=== PATIENT | male | born 1975 | race Caucasian/White ===

== ENCOUNTER 2016-11-16 19:39 | Emergency (ER) | payer SELFPAY ==
--- NOTE | ~2016-11-16 | ER ---
PATIENT'S NAME: BRANDYN MITCHELL [facility] AGE: 41 Y [address] ROOM: [place] [address] LOCATION: [facility] ADMIT DATE: 11/16/2016 ER/Outpatient Report DISCHARGE DATE: 11/16/2016 FAMILY PHYSICIAN: PHYSICIAN, NO ATTENDING PHYSICIAN: Gerson Sena Time of Arrival: 1940 hours. Time of Exam: 1955 hours. CHIEF COMPLAINT: Abdominal pain. HISTORY OF PRESENT ILLNESS: The patient states since 10 o'clock this morning, he has had nausea, vomiting, and generalized abdominal pain. States the pain is all over. States the vomitus has been bile colored. He reports he had a normal bowel movement this morning. Denies having fever or chills. Denies any change in his urination. States however he has not urinated since this morning, also because every time he tries to drink any fluids, he vomits them back up. He reports he has had this pain before. He has a history of abdominal migraines. Does see flexographic press operator. Mom reports he last saw them in June. ALLERGIES: PENICILLIN AND PROMETHAZINE. MEDICATIONS: Prilosec. PAST MEDICAL HISTORY: Peptic ulcer and abdominal migraines. PAST SURGICAL HISTORY: Orthopedic surgery. SOCIAL HISTORY: He lives at home with his mother. He does smoke one pack per day and has smoked for the last 20+ years. REVIEW OF SYSTEMS: All negative other than those mentioned in the HPI. PHYSICAL EXAMINATION: VITAL SIGNS: He weighed 62.6 kg, blood pressure is 139/72, pulse is 74, respirations 24, temperature of 98.5, O2 saturations 100% on room air. GENERAL: The patient is awake, alert, and oriented x4. He is moving around PATIENT'S NAME: BRANDYN MITCHELL [facility] AGE: 41 Y [address] ROOM: [place] [address] LOCATION: [facility] ADMIT DATE: 11/16/2016 ER/Outpatient Report DISCHARGE DATE: 11/16/2016 FAMILY PHYSICIAN: PHYSICIAN, NO ATTENDING PHYSICIAN: Gerson Sena on the cart stating he just cannot get into a comfortable position and wants something for pain right away. RESPIRATIONS: Even and nonlabored. LUNGS: Course throughout. No wheezing. ABDOMEN: Soft, nondistended. Bowel sounds are hypoactive. He is tender everywhere to palpation. Saline lock was initiated. Fluids of normal saline were started at a wide- open rate. He was given Zofran 4 mg IV and morphine 4 mg IV. He was monitored. Was able to get into a comfortable position. Approximately 1 hour later, he was re-evaluated. He was able to lay flat. States that his pain tends to be worse when he is laying flat. He is more tender around the umbilical area. Abdomen is somewhat firm around the umbilical area. Tender to touch. Bowel sounds continued to be hypoactive. Fluids are infusing. The patient was given fentanyl 50 mcg IV at that time. Fluids were completed. Upon re-evaluation, he states he is feeling much better. He is able to ambulate without difficulty. IMPRESSION: Abdominal pain. PLAN: Home, rest, fluids. Tylenol as needed for fever. Continue his current medications. If symptoms persist, return. He should follow up with his primary provider in the next 2 to 3 days or return to the ER. He verbalized understanding. LUDWIG HARRELL APRN FOR MD TAYLOR ANGELES/zo /[id number] d: 11/17/16 0508 t: 11/19/16 1243, OUTPATIENT REPORT
[~2016-11-16 19:39] MED LIST: CARAFATE1 GM PO; PRILOSEC20 MG PO
[2017-04-20] MEDS ORDERED: NORCO 5-325 TA1 EACH PO (20:05)
[2017-04-22] MEDS ORDERED: ELAVIL25 MG PO (11:48)
[2017-04-22] MEDS ORDERED: REGLAN5 MG PO (11:49)
[2017-04-22] MEDS ORDERED: LEVSIN/SL0.125 MG SL (11:52)
== END 2016-11-16 21:48 | disposition disaster alternative care site (69) ==
LOC: GMED 19:39
DX: R10.9 Unspecified abdominal pain (principal); R11.2 Nausea with vomiting, unspecified; F17.210 Nicotine dependence, cigarettes, uncomplicated; Z88.0 Allergy status to penicillin; Z88.8 Allergy status to other drugs, medicaments and biological substances; Z79.899 Other long term (current) drug therapy; Z87.11 Personal history of peptic ulcer disease; Z98.890 Other specified postprocedural states
CPT/HCPCS: J2270; J2405; J3010; J7030

== ENCOUNTER 2017-02-04 16:33 | Emergency (ER) | payer SELFPAY ==
--- NOTE | ~2017-02-04 | ER ---
PATIENT'S NAME: BRANDYN MITCHELL [facility] AGE: 41 Y [address] ROOM: [place] [address] LOCATION: [facility] ADMIT DATE: 02/04/2017 ER/Outpatient Report DISCHARGE DATE: 02/04/2017 FAMILY PHYSICIAN: PHYSICIAN, NO ATTENDING PHYSICIAN: Rishabh De La Rosa TIME SEEN: 1640 hours. CHIEF COMPLAINT: Severe abdominal pain. HISTORY OF PRESENT ILLNESS: The patient is 41-year-old male who has a history of cyclic abdominal pain. The patient states he has been told that he has abdominal migraines. The pain is usually associated with nausea and vomiting. The patient denies any diarrhea. Last normal bowel movement was this morning. He does get fevers and chills with it. The patient has been seen at least 3 other times in the emergency room and had normal workups. He has also been seen by GI and has had both upper and lower scopes. ALLERGIES: ALLERGIC TO PENICILLIN AND PHENERGAN. CURRENT MEDICATIONS: 1. Prilosec. 2. Tums. MEDICAL HISTORY: Does include some reflux. SURGERIES: None. SOCIAL HISTORY: Smoker, pack a day. Denies alcohol use. REVIEW OF SYSTEMS: GENERAL: Fever and chills today; however, fever has not been documented. HEAD AND EENT: No recent headache or sore throat. RESPIRATORY: Smoker. Denies cough or wheezing. GASTROINTESTINAL: Mostly upper abdominal pain, crampy at times, quite severe with history of some weight loss. GENITOURINARY: No dysuria. No flank pain. SKIN: No recent rash. PATIENT'S NAME: BRANDYN MITCHELL [facility] AGE: 41 Y [address] ROOM: [place] [address] LOCATION: [facility] ADMIT DATE: 02/04/2017 ER/Outpatient Report DISCHARGE DATE: 02/04/2017 FAMILY PHYSICIAN: PHYSICIAN, NO ATTENDING PHYSICIAN: Rishabh De La Rosa PHYSICAL EXAMINATION: VITAL SIGNS: His blood pressure was 134/77, his temperature is 96.6 here, his respiratory rate 18, pulse 65, and O2 saturations 95%. GENERAL APPEARANCE: He presented somewhat doubled over, quite distracted by the pain. HEENT: Head: He had temporal wasting, bilateral. Eyes: Sclerae did appear clear. There is no evidence of any icterus. Nose: Septum midline. Mouth: Teeth somewhat poor condition, but buccal membranes moist. LUNGS: Breath sounds clear bilaterally except for few scattered wheezes. HEART: Tones distant. No murmur. ABDOMEN: Flat, fairly soft, but tender mostly upper abdominal. Had active bowel sounds. LABORATORY DATA AND X-RAYS: CMS: Glucose is elevated at 106. Amylase 66. Lipase was 120. CBC: White count elevated at 15.2 and ANC was increased at 13.3. PLAN: Pain management. IV was started. Normal saline. He was given 4 of Zofran IV as well as [address] abdomen has been ordered. The patient will be followed up by Jeff for further treatment and further care. ADRIANA AUGUSTE FOR DO DOROTHY VÁSQUEZ/zo /[id number] d: 02/04/17 2324 t: 02/12/17 1209, OUTPATIENT REPORT
--- NOTE | ~2017-02-04 | ER ---
PATIENT'S NAME: BRANDYN MITCHELL [facility] AGE: 41 Y [address] ROOM: [place] [address] LOCATION: [facility] ADMIT DATE: 02/04/2017 ER/Outpatient Report DISCHARGE DATE: 02/04/2017 FAMILY PHYSICIAN: PHYSICIAN, NO ATTENDING PHYSICIAN: Rishabh D eLa Rosa IMPRESSION: Chronic Abdominal Pain PLAN: The patient was initially seen by Nixon Costello. Please see his dictation for previous portion of this visit. I assumed care after the patient received a CT scan. It was reviewed by Dr. Torres as unchanged since the November image. The patient was resting comfortably when I evaluated the patient. His abdomen was nonsurgical. The patient did receive a total of 2 mg of Dilaudid over his ER stay. I am going to dismiss him to home with prescription for Zofran to use as directed. He needs to push clear fluids, and he needs to follow up with his primary care physician in 2-3 days. The patient understands and agrees with care. KIMBERLY THAKUR PA-C FOR DO RANDOLPH VÁSQUEZ/zo /[id number] d: t: 02/09/17 1217, OUTPATIENT REPORT
[2017-02-04 17:13] LABS: BASOPHIL % 0.2 %; EOSINOPHIL # 0.1 K/uL (0.0-0.5); EOSINOPHIL % 0.4 %; HEMATOCRIT 51.7 % (37.0-53.0); HEMOGLOBIN 17.8 g/dL (12.0-17.0); IMMATURE GRANULOCYTE % 0.3 %; LYMPHOCYTE # 1.3 K/uL (0.8-4.0); LYMPHOCYTE % 8.2 %; MCH 30.7 pg (27.0-34.0); MCHC 34.4 gm/dL (32.0-36.5); MCV 89.3 fl (83.0-98.0); MONOCYTE # 0.6 K/uL (0.0-1.0); MONOCYTE % 3.7 %; MPV 9.3 fl (9.4-12.4); NEUTROPHIL # (ANC) 13.3 K/uL (1.4-9.0); NEUTROPHIL % 87.2 %; NRBC % 0 /100WBC (0-0.00); PLATELET COUNT 341 K/uL (150-450); RBC 5.79 M/uL (4.00-6.00); RDW-CV 12.4 % (11.9-14.6); WBC 15.2 K/uL (4.0-11.0)
[2017-02-04 17:30] LABS: ALBUMIN 4.9 gm/dL (3.5-5.0); ALK PHOS 106 IU/L (33-138); ALT 20 IU/L (12-78); ANION GAP 14.9 (10.0-19.0); AST 12 IU/L (10-40); BLOOD UREA NITROGEN 11 mg/dL (6-24); CALCIUM 10.2 mg/dL (8.5-10.5); CHLORIDE 107 mMol/L (96-110); CO2 25 mMol/L (22-32); CREATININE 0.9 mg/dL (0.6-1.3); ESTIMATED GFR (MDRD EQUATION) > 60; POTASSIUM 3.9 mMol/L (3.7-5.1); SODIUM 143 mMol/L (135-145); TOTAL BILIRUBIN 0.6 mg/dL (0.0-1.5); TOTAL PROTEIN 8.6 g/dL (6.0-8.4)
[2017-04-20] MEDS ORDERED: NORCO 5-325 TA1 EACH PO (20:05)
[2017-04-22] MEDS ORDERED: ELAVIL25 MG PO (11:48)
[2017-04-22] MEDS ORDERED: REGLAN5 MG PO (11:49)
[2017-04-22] MEDS ORDERED: LEVSIN/SL0.125 MG SL (11:52)
== END 2017-02-04 19:00 | disposition disaster alternative care site (69) ==
LOC: GMED 16:33
PROVIDERS: Physician Assistant Medical
DX: R10.9 Unspecified abdominal pain (principal); K21.9 Gastro-esophageal reflux disease without esophagitis; F17.210 Nicotine dependence, cigarettes, uncomplicated; Z88.8 Allergy status to other drugs, medicaments and biological substances; Z79.899 Other long term (current) drug therapy; Z88.0 Allergy status to penicillin
CPT/HCPCS: J1170; J2405; J7030; Q9967

== ENCOUNTER 2017-04-18 13:50 | Emergency (ER) | payer OTHER ==
--- NOTE | ~2017-04-18 | ER ---
PATIENT'S NAME: BRANDYN MITCHELL [facility] AGE: 41 Y [address] ROOM: [place] [address] LOCATION: [facility] ADMIT DATE: 04/18/2017 ER/Outpatient Report DISCHARGE DATE: 04/18/2017 FAMILY PHYSICIAN: PHYSICIAN, NO ATTENDING PHYSICIAN: Alexx Avila CHIEF COMPLAINT: Abdominal pain. HISTORY OF PRESENT ILLNESS: The patient states he is having an abdominal migraine. He reports he gets one approximately every six months. He has seen a Gastroenterology specialist. Now, he reports that he had symptoms that began at about 8 o'clock this morning. Once in a while, if he takes his Prilosec and can go to sleep, these symptoms will pass. However, today, they have not passed, and they have gotten worse. He complains of 10/10 generalized abdominal pain. He is nauseated, but has not vomited. He has been having these abdominal migraines for the past two years. PAST MEDICAL HISTORY: Other than abdominal migraine, there is no other history. SOCIAL HISTORY: He smokes one pack of cigarettes per day. He does not drink alcohol or use any illicit drugs. REVIEW OF SYSTEMS: CONSTITUTIONAL: He denies any fevers, chills, or sweats. He states he does have to be careful what he eats because he feels that some foods trigger his symptoms. Therefore, he has a difficult time gaining any weight. HEENT: He denies any headaches. No visual changes. No upper respiratory congestion. No difficulty speaking or swallowing. CARDIOVASCULAR: No chest pains. No palpitations. RESPIRATORY: No shortness of breath or cough. GASTROINTESTINAL: No diarrhea or constipation. Normal bowel movement earlier today. He has severe pain as mentioned with nausea. GENITOURINARY: No urinary symptoms including no hematuria. NEUROLOGICAL: No complaints. MUSCULOSKELETAL: No complaints. HEMATOLOGIC: No complaints. PHYSICAL EXAMINATION: VITAL SIGNS: Temperature is 97.9, pulse is 85, respiratory rate is 16, and blood pressure is 142/89. GENERAL APPEARANCE: He is alert, pink, warm, and diaphoretic, in severe PATIENT'S NAME: BRANDYN MITCHELL [facility] AGE: 41 Y [address] ROOM: [place] [address] LOCATION: [facility] ADMIT DATE: 04/18/2017 ER/Outpatient Report DISCHARGE DATE: 04/18/2017 FAMILY PHYSICIAN: PHYSICIAN, NO ATTENDING PHYSICIAN: Alexx Avila, writhing about on the cot. HEENT: Head is normocephalic. Eyes: PERRL. Ears: TMs are pearly vivas with light reflexes and landmarks visible. Nose: Turbinates are pink. No rhinorrhea. Pharynx is without edema, erythema, or exudate. Uvula is midline. Mucous membranes are moist. NECK: Supple. No lymphadenopathy. LUNGS: Clear to anterior-posterior auscultation. No adventitious lung sounds. Respiratory effort was normal. CARDIAC: Heart rate is regular. Normal S1 and S2. No lifts or thrills or murmurs. ABDOMEN: Soft and flat and nondistended. Bowel sounds are present in all 4 quadrants. It is generally tender to light palpation. The patient refuses deep palpation. He denies any change in tenderness from upper to lower quadrants, stating it hurts the same all over. EXTREMITIES: Capillary refill is less than 3 seconds, but no peripheral edema was noted. Peripheral pulses are 2+. NEUROLOGICAL: Cranial nerves II through XII are grossly intact. Motor strength is 5/5 in the upper and lower extremities. IMPRESSION/ASSESSMENT: Abdominal migraine. EMERGENCY DEPARTMENT COURSE: The patient, upon arrival, very aggressively stated his desire to not have any tests done, stating that the last time he was here, it cost him a lot of money, and they found nothing wrong. He already knows what is wrong, and that is he has an abdominal migraine. The patient was given 10 mg of morphine IM per suggestion of Dr. Alexx Avila. He then was given Zofran 4 mg IV in addition to a liter of normal saline and 50 mcg of fentanyl IV as well. He did ask for more fentanyl prior to leaving; however, was no longer writhing on the cot, and was conversing easily with his significant other, in no acute distress. DISPOSITION AND PLAN: He is to follow up with his family doctor regarding migraine medications, as he did ask about Triptan. I would just as soon his primary care provider initiated this, and he agreed. He is to follow up tomorrow if he is not any better, and sooner if he is worse. He knows that he can come back if his pain returns or he develops any fever or any other concerns. He was given contact information for [facility] here in town as he does not have any health insurance, and has concerns about paying his healthcare bills. PATIENT'S NAME: BRANDYN MITCHELL [facility] AGE: 41 Y [address] ROOM: [place] [address] LOCATION: [facility] ADMIT DATE: 04/18/2017 ER/Outpatient Report DISCHARGE DATE: 04/18/2017 FAMILY PHYSICIAN: PHYSICIAN, NO ATTENDING PHYSICIAN: Alexx Avila, SENIOR STORAGE ADMINISTRATOR FOR ALEXX AVILA MD DP/modl /[id number] d: 04/19/17 0126 t: 04/29/17 1629, OUTPATIENT REPORT
[2017-04-20] MEDS ORDERED: NORCO 5-325 TA1 EACH PO (20:05)
[2017-04-22] MEDS ORDERED: ELAVIL25 MG PO (11:48)
[2017-04-22] MEDS ORDERED: REGLAN5 MG PO (11:49)
[2017-04-22] MEDS ORDERED: LEVSIN/SL0.125 MG SL (11:52)
== END 2017-04-18 15:47 | disposition disaster alternative care site (69) ==
LOC: GMED 13:50
DX: G43.D0 Abdominal migraine, not intractable (principal); Z88.0 Allergy status to penicillin; Z88.8 Allergy status to other drugs, medicaments and biological substances; Z79.899 Other long term (current) drug therapy
CPT/HCPCS: J0780; J1200; J2270; J3010; J7030

== ENCOUNTER 2017-04-19 16:46 | Emergency (ER) | payer OTHER ==
--- NOTE | ~2017-04-19 | ER ---
PATIENT'S NAME: BRANDYN MITCHELL [facility] AGE: 41 Y [address] ROOM: [place] [address] LOCATION: [facility] ADMIT DATE: 04/19/2017 ER/Outpatient Report DISCHARGE DATE: 04/19/2017 FAMILY PHYSICIAN: PHYSICIAN, NO ATTENDING PHYSICIAN: Alexx Franklin SEEN AT: 1700 hours. CHIEF COMPLAINT: Abdominal pain. HISTORY OF PRESENT ILLNESS: The patient is a 41-year-old male with a history of abdominal migraines. The patient presents with abdominal pain started about a day and a half ago. The patient was actually in the emergency room yesterday, was treated with IV and IM pain medication. The patient had normal lab at that time. The patient states he has continued to have some nausea and poor appetite. ALLERGIES: PENICILLIN AND PHENERGAN. HISTORY OF ABDOMINAL MIGRAINES. THE PATIENT HAS HAD 2 CT SCANS IN THE LAST YEAR. HE HAS BEEN SEEN BY GASTROENTEROLOGY AND HAS HAD BOTH UPPER AND LOWER SCOPES WITH MOSTLY NORMAL FINDINGS. SOCIAL HISTORY: Smoker, a pack a day. Denies alcohol abuse. The patient lives with his mother, works as a barb service. REVIEW OF SYSTEMS: GENERAL: No fevers. HEAD/EENT: Denies headache. He is wearing sunglasses. RESPIRATORY: Denies any cough or hemoptysis. CARDIOVASCULAR: No chest pain. GASTROINTESTINAL: Includes history of kind of episodic recurrent abdominal pain. Denies weight loss or change in his bowel habits. GENITOURINARY: Negative. PHYSICAL EXAMINATION: VITAL SIGNS: Blood pressure 144/91, had a temperature of 98.1, his respiratory rate was 20, pulse 52, and his O2 saturations 99% on room air. GENERAL APPEARANCE: White male, appeared thin, alert. HEAD/EENT: Head had some mild temporal wasting. Pupils were equal. No scleral icterus was noted. His oral membranes were somewhat dry. PATIENT'S NAME: BRANDYN MITCHELL [facility] AGE: 41 Y [address] ROOM: [place] [address] LOCATION: [facility] ADMIT DATE: 04/19/2017 ER/Outpatient Report DISCHARGE DATE: 04/19/2017 FAMILY PHYSICIAN: PHYSICIAN, NO ATTENDING PHYSICIAN: Alexx Franklin LUNGS: Peripherally sounded clear. HEART: No tachycardia. Blood pressure was normal. No murmurs. ABDOMEN: Kind of general tenderness. Bowel sounds somewhat diminished. No CVA tenderness. SKIN: Turgor was somewhat poor. LABORATORY DATA AND X-RAYS: CMS: Potassium 3.6. His lipase was 144. CBC: White count 9.7, hemoglobin 15.1, and his ANC was 7.1. ASSESSMENT: 1. Episodic recurrent abdominal pain, suspected abdominal migraines. 2. Tobacco abuse. 3. History of reflux. 4. Mild dehydration. PLAN: IV was started normal saline, a liter was given here in the emergency room. He was given 4 of Zofran IV. Pain management initially started with 0.5 of Dilaudid, this was repeated x2. The patient after his third dose had pain diminished to about 1 or 2. The patient advised home. Clear liquids tonight. Follow up as needed. ADRIANA AUGUSTE FOR MD DOROTHY MCKEON/zo /[id number] d: 04/19/172204 t: 04/27/17 1009, OUTPATIENT REPORT
[2017-04-19 17:30] LABS: BASOPHIL % 0.2 %; EOSINOPHIL # 0.1 K/uL (0.0-0.5); EOSINOPHIL % 0.7 %; HEMATOCRIT 42.9 % (37.0-53.0); HEMOGLOBIN 15.1 g/dL (12.0-17.0); IMMATURE GRANULOCYTE % 0.2 %; LYMPHOCYTE # 1.8 K/uL (0.8-4.0); LYMPHOCYTE % 18.3 %; MCH 31.5 pg (27.0-34.0); MCHC 35.2 gm/dL (32.0-36.5); MCV 89.6 fl (83.0-98.0); MONOCYTE # 0.7 K/uL (0.0-1.0); MONOCYTE % 7.3 %; MPV 9.1 fl (9.4-12.4); NEUTROPHIL # (ANC) 7.1 K/uL (1.4-9.0); NEUTROPHIL % 73.3 %; NRBC % 0 /100WBC (0-0.00); PLATELET COUNT 299 K/uL (150-450); RBC 4.79 M/uL (4.00-6.00); RDW-CV 12.3 % (11.9-14.6); WBC 9.7 K/uL (4.0-11.0)
[2017-04-19 17:47] LABS: ALBUMIN 3.9 gm/dL (3.5-5.0); ALK PHOS 87 IU/L (33-138); ALT 20 IU/L (12-78); ANION GAP 12.6 (10.0-19.0); AST 13 IU/L (10-40); BLOOD UREA NITROGEN 12 mg/dL (6-24); CHLORIDE 110 mMol/L (96-110); CO2 23 mMol/L (22-32); CREATININE 0.8 mg/dL (0.6-1.3); POTASSIUM 3.6 mMol/L (3.7-5.1); SODIUM 142 mMol/L (135-145); TOTAL BILIRUBIN 0.6 mg/dL (0.0-1.5); TOTAL PROTEIN 7.2 g/dL (6.0-8.4)
[2017-04-20] MEDS ORDERED: NORCO 5-325 TA1 EACH PO (20:05)
[2017-04-22] MEDS ORDERED: ELAVIL25 MG PO (11:48)
[2017-04-22] MEDS ORDERED: REGLAN5 MG PO (11:49)
[2017-04-22] MEDS ORDERED: LEVSIN/SL0.125 MG SL (11:52)
== END 2017-04-19 19:00 | disposition disaster alternative care site (69) ==
LOC: GMED 16:46
PROVIDERS: Emergency Medicine
DX: R10.9 Unspecified abdominal pain (principal); E86.0 Dehydration; F17.210 Nicotine dependence, cigarettes, uncomplicated; K21.9 Gastro-esophageal reflux disease without esophagitis; Z88.0 Allergy status to penicillin; Z88.8 Allergy status to other drugs, medicaments and biological substances; Z79.891 Long term (current) use of opiate analgesic; Z79.899 Other long term (current) drug therapy; Z98.890 Other specified postprocedural states
CPT/HCPCS: J1170; J2405; J7030